=== PATIENT | male | born 1995 | race Hispanic/Latino ===

== ENCOUNTER 2016-12-13 03:28 | Emergency (ER) | payer BC ==
[2016-12-13 03:45] VITALS: BMI 26.3
--- NOTE | 2016-12-13 03:53 | ED PDOC ---
Arrival/HPI - General Chief Complaint: Abdominal Pain Time Seen by Provider: 12/13/16 03:51 Historian: Patient - History of Present Illness Narrative History of Present Illness (Text): 12/13/16 04:18 A 21 year old male presents to the emergency department complaining of right lower quadrant abdominal pain that developed yesterday. Patient states the pain began very suddenly when he turned his thorax. Patient notes pain now reproducible with movement. Patient denies any nausea, vomiting, loss of appetite, fever or any other complaints at this time. Patient indicates the area of pain is very focal just to the R and inferior to the umbilicus. Time/Duration: Other (yesterday) Symptom Onset: Sudden Symptom Course: Unchanged Activities at Onset: Rest Context: Home Past Medical History - Provider Review Nursing Documentation Reviewed: Yes - Psychiatric Hx Depression: No Hx Emotional Abuse: No Hx Physical Abuse: No Hx Substance Use: No - Anesthesia Hx Anesthesia: No - Suicidal Assessment Feels Threatened In Home Enviroment: No Family/Social History - Physician Review Nursing Documentation Reviewed: Yes Family/Social History: No Known Family HX Smoking Status: Never Smoked Hx Alcohol Use: Yes Frequency of alcohol use: Socially Hx Substance Use: No Allergies/Home Meds Allergies/Adverse Reactions: Allergies No Known Allergies Allergy (Verified 12/13/16 03:45) Home Medications: Home Meds Medication Instructions Recorded Confirmed No Known Home Med 04/24/12 12/13/16 Review of Systems - Physician Review All systems were reviewed & negative as marked: Yes - Review of Systems Constitutional: absent: Fevers Gastrointestinal: Abdominal Pain. absent: Nausea, Vomiting Physical Exam - Physical Exam Narrative Physical Exam (Text): 12/13/16 04:11 Constitutional: No acute distress. Head: Normocephalic. Atraumatic. Eyes: PERRL. ENT: Moist mucous membranes. Neck: Supple. Cardiovascular: Regular rate. Chest: No tenderness. Respiratory: Clear to auscultation bilaterally. GI: Soft. Nontender. Nondistended. No rebound or guarding. Negative obturator sign. No tenderness at McBurney's point. Back: No CVA tenderness. Musculoskeletal: No tenderness or swelling of extremities. Skin: No rash. Neurologic: Alert, no focal deficit. Vital Signs Reviewed: Yes Vital Signs Temp Pulse Resp BP Pulse Ox 12/13/16 03:28 98.4 F 76 16 148/83 100 Temperature: Afebrile Blood Pressure: Normal Pulse: Regular Respiratory Rate: Normal Appearance: Positive for: Well-Appearing, Non-Toxic, Comfortable Pain Distress: None Mental Status: Positive for: Alert and Oriented X 3 Medical Decision Making ED Course and Treatment: 12/13/16 04:10 Impression: A 21 year old male with right lower quadrant abdominal pain. Prior Visits: Notes and results from previous visits were reviewed. Patient was last seen in the emergency department on 04/24/12 for evaluation of finger laceration. Progress Notes: Patient with pain in the RLQ but not at McBurney's point and history not consistent with acute appendicitis, more likely muscle strain. Patient is agreeable to monitor himself for signs of appendicitis and informed he may return to ER at any time but CT not indicated at this time. - Scribe Statement The provider has reviewed the documentation as recorded by the John Maldonado Provider Scribe Attestation: All medical record entries made by the Jeimyibinna were at my direction and personally dictated by me. I have reviewed the chart and agree that the record accurately reflects my personal performance of the history, physical exam, medical decision making, and the department course for this patient. I have also personally directed, reviewed, and agree with the discharge instructions and disposition. Disposition/Present on Arrival - Present on Arrival Any Indicators Present on Arrival: No History of DVT/PE: No History of Uncontrolled Diabetes: No Urinary Catheter: No History of Decub. Ulcer: No History Surgical Site Infection Following: None - Disposition Have Diagnosis and Disposition been Completed?: Yes Diagnosis: Abdominal pain Disposition: HOME/ ROUTINE Disposition Time: 03:52 Patient Plan: Discharge Condition: STABLE Discharge Instructions (ExitCare): Appendicitis (DC)
[2016-12-13 04:08] VITALS: BP 148/83; PULSE 76; RESP 16; TEMP 98.4; O2SAT 100
== END 2016-12-13 04:04 | disposition home or self-care (01) ==
LOC: ED 03:28
DX: R10.31 Right lower quadrant pain (principal)